=== PATIENT | male | born 1960 | race Caucasian/White ===

== ENCOUNTER 2020-06-17 08:00 | Outpatient (CLI) | payer OTHER ==
--- NOTE | 2020-06-17 15:32 | XRAY Report ---
PROCEDURE: Ankle 3 View RT INDICATIONS: RIGHT ANKLE PAIN TECHNIQUE: 3 views of the ankle were acquired. COMPARISON: None FINDINGS: Bones: No fractures or dislocations. Ankle mortise is normally aligned. No suspicious bony lesions . Soft tissues: No tibiotalar joint effusion. Achilles tendon appears normal. Lateral soft tissue sw elling is present. IMPRESSION: No acute fracture. No osseous lesion. If symptoms and/or clinical suspicion for patholog y continue, further assessment with repeat plain films, or advanced imaging (e.g., CT, MRI, or bone s can) is recommended for further assessment. Reviewed by: Christina Weeks MD on 06/17/2020 3:31 PM PDT Approved by: Christina Weeks MD on 06/17/2020 3:31 PM PDT Station ID: [id number]
== END 2020-06-17 23:59 | disposition home or self-care (01) ==
LOC: DI.S 08:00
PROVIDERS: ATTEND Physician Assistant
DX: M25.571 Pain in right ankle and joints of right foot (principal)